=== PATIENT | female | born 1995 | race Caucasian/White ===

== ENCOUNTER 2023-04-17 10:50 | Outpatient (CLI) | payer BC ==
[2023-04-17 11:39] LABS: #Basophils 0.1 10x3/uL (0.0-0.2); #Eosinphils 0.4 10x3/uL (0.0-0.5); #Monocytes 0.6 10x3/uL (0.0-1.1); #Neutrophils 3.1 10x3/uL (1.5-8.4); %Basophils 1.6 % (0.0-2.0); %Eosinophils 5.7 % (0.0-6.0); %Lymphocytes 40.1 % (18.0-47.0); %Monocytes 8.3 % (0.0-10.0); %Neutrophils 44.2 % (40.0-75.0); Hematocrit 43.7 % (34.9-44.5); Hemoglobin 14.5 g/dL (12.0-15.5); Mean Corpuscular HGB CONC 33.2 g/dL (32.0-36.0); Mean Corpuscular Hemoglobin 29.4 pg (27.0-33.0); Mean Corpuscular Volume 88.5 fl (81.6-98.3); Mean Platelet Volume 8.6 fl (7.4-10.4); Platelet Count 515 10x3/uL (150-450); RBC Distribution Width 12.3 % (11.5-14.5); Red Blood Cell (RBC) Count 4.94 10x6/uL (3.90-5.03)
[2023-04-17 12:09] LABS: BHCG - Serum Negative (NEGATIVE); Pregs Control Background? CLEAR/WHITE (CLR/WHITE); Pregs Control Bar Appear? YES (CONTROL BAR)
[2023-04-17 12:14] LABS: Anion Gap 13 mmol/L (10-20); BUN (Urea Nitrogen) 10 mg/dL (7.0-18.7); Calc. Creatinine Clearance 0 mL/min (70-130); Calcium 9.7 mg/dL (7.8-10.44); Carbon Dioxide 20 mmol/L (22-29); Chloride 109 mmol/L (98-107); Estimated GFR 97; Glucose 75 mg/dL (70-105); Potassium 3.1 mmol/L (3.5-5.1); Sodium 139 mmol/L (136-145)
== END 2023-04-17 10:51 | disposition home or self-care (01) ==
LOC: LABBT 10:50
PROVIDERS: ATTEND Surgery
DX: Z01.812 Encounter for preprocedural laboratory examination (principal); K64.8 Other hemorrhoids
CPT/HCPCS: 80048; 84703; 85025

== ENCOUNTER 2023-04-21 06:43 | Day surgery (SDC) | payer BC ==
[2023-04-17 11:15] VITALS: BMI 24.6
[2023-04-21] MEDS ORDERED: Lidocaine 2% PF 5 ML VIAL ONE (08:13)
[2023-04-21] MEDS ORDERED: Bupivacaine 0.25% HCL 30 ML VIAL ONE (08:13)
[2023-04-21] MEDS ORDERED: EPINEPHrine 1 MG/ML AMP ONE (08:13)
[2023-04-21] MEDS ORDERED: fentaNYL PF 100 MCG/2 ML SYRINGE ONE (08:48)
[2023-04-21] MEDS ORDERED: SUGAMMADEX SODIUM 200 MG/2 ML VIAL ONE (08:48)
[2023-04-21] MEDS ORDERED: cefOXitin 2 GM VIAL ONE (09:01)
[2023-04-21] MEDS ORDERED: Sodium Chloride 0.9% 100 ML ONE (09:01)
[2023-04-21] MEDS ORDERED: Ondansetron PF 4 MG/2 ML Vial ONE (09:05)
[2023-04-21] MEDS ORDERED: Lidocaine 1% PF 5 ML VIAL ONE (09:05)
[2023-04-21] MEDS ORDERED: NEOSTIGMINE 3 MG/3 ML SYR 3 MG/3 ML SYRINGE ONE (09:05)
[2023-04-21] MEDS ORDERED: Glycopyrrolate 0.2 MG/ML 5 ML SYRINGE ONE (09:05)
[2023-04-21] MEDS ORDERED: PROPOFOL 200 MG/20 ML VIAL ONE (09:05)
[2023-04-21] MEDS ORDERED: Dexamethasone 20 MG/5 ML VIAL ONE (09:05)
[2023-04-21] MEDS ORDERED: Rocuronium Bromide 10 MG/ML (10ML VIAL) ONE (09:05)
[2023-04-21] MEDS ORDERED: Ketorolac Tromethamine 30 MG/ML VIAL ONE (09:05)
[2023-04-21] MEDS ORDERED: Ondansetron ODT 4 MG TAB ONE (12:15)
== END 2023-04-21 12:20 | disposition home or self-care (01) ==
LOC: SDC 06:43
PROVIDERS: ATTEND Surgery
PROC: 06BY0ZC Excision of Hemorrhoidal Plexus, Open Approach (ICD-10-PCS; principal; 2023-04-21)
DX: K64.8 Other hemorrhoids (principal); K60.2 Anal fissure, unspecified
CPT/HCPCS: 88304; J0171; J0694; J1100; J1885; J2001; J2405; J2704; J3490; Q0162; S0020